=== PATIENT | female | born 1975 | race Caucasian/White ===

== ENCOUNTER 2018-11-29 23:09 | Emergency (ER) | payer BC ==
[2018-11-30] MEDS ORDERED: ALBUTEROL 2.5 MG/3 ML NEB SOL ONE (00:06)
--- NOTE | 2018-11-30 00:58 | ER ---
Nurse's Notes [facility] Name: Brenda Piña Age: 43 yrs Sex: Female : 1975 Arrival Date: 11/29/2018 Time: 23:11 Bed 16 Private MD: Diagnosis: Dyspnea, unspecified;Anxiety disorder, unspecified Presentation: 11/29 23:18 Presenting complaint: Patient states: "I am having breathing difficulty for a couple of jd3 weeks. it comes and goes. I have seen my primary provider and given an inhaler, but it is not helping all that well.". Transition of care: patient was not received from another setting of care. Onset of symptoms was November 29, 2018. Risk Assessment: Do you want to hurt yourself or someone else? Patient reports no desire to harm self or others. Initial Sepsis Screen: Does the patient meet any 2 criteria? No. Patient's initial sepsis screen is negative. Does the patient have a suspected source of infection? No. Patient's initial sepsis screen is negative. Care prior to arrival: None. 23:18 Method Of Arrival: Ambulatory jd3 23:18 Acuity: PATRICIA 3 jd3 Triage Assessment: 23:29 General: Appears in no apparent distress. Behavior is calm, cooperative. Respiratory: ak1 Reports shortness of breath since 2 weeks [employer] the patient has mild shortness of breath. Respiratory: Airway is patent Respiratory effort is even, unlabored, Breath sounds are clear bilaterally. Historical: - Allergies: 23:22 Sulfa (Sulfonamide Antibiotics); jd3 - Home Meds: 23:22 moxifloxacin ophthalmic ophthalmic [Active]; jd3 - PMHx: 23:22 Asthma; jd3 - PSHx: 23:22 None; jd3 - Immunization history:: Adult Immunizations up to date. - Social history:: Smoking status: Patient/guardian denies using tobacco. - Ebola Screening: : Patient negative for fever greater than or equal to 101.5 degrees Fahrenheit, and additional compatible Ebola Virus Disease symptoms. Screenin:26 Abuse screen: Denies threats or abuse. Denies injuries from another. Nutritional ak1 screening: No deficits noted. Tuberculosis screening: No symptoms or risk factors identified. Fall Risk None identified. Assessment: 23:26 General: Appears in no apparent distress. Behavior is calm, cooperative. Pain: Denies ak1 pain. Neuro: No deficits noted. Cardiovascular: Reports None Rhythm is regular. Respiratory: Airway is patent Respiratory effort is even, unlabored, Breath sounds are clear bilaterally. Onset: The symptoms/episode began/occurred 2 weeks [employer]. pt using recuse inhaler that helps with chest tightness. pt denies any known trigger for the intermittent SOB. pt stated she has 5 children, 3 of which are "small" pt stated a possibility of anxiety and increased stress. . GI: No signs and/or symptoms were reported involving the gastrointestinal system. : No signs and/or symptoms were reported regarding the genitourinary system. EENT: No signs and/or symptoms were reported regarding the EENT system. Derm: No signs and/or symptoms reported regarding the dermatologic system. Musculoskeletal: No signs and/or symptoms reported regarding the musculoskeletal system. Vital Signs: 23:22 BP 115 / 56; Pulse 73; Resp 18 S; Temp 97.8(O); Pulse Ox 100% on R/A; Weight 67.13 kg j (R); Height 5 ft. 4 in. (162.56 cm) (R); Pain 0/10; 11/30 00:42 BP 111 / 53; Pulse 91; Resp 16; Pulse Ox 100% on R/A; ak1 11/29 23:22 Body Mass Index 25.40 (67.13 kg, 162.56 cm) jd3 ED Course: 11/29 23:11 Patient arrived in ED. ag3 23:21 Triage completed. jd3 23:22 Teresa Enamorado, RN is Primary Nurse. ak1 23:23 Arm band placed on. jd3 23:30 Patient has correct armband on for positive identification. Bed in low position. Call ak1 light in reach. Side rails up X 1. Adult w/ patient. Pulse ox on. NIBP on. 23:34 Jorge Malik MD is Attending Physician. tw4 11/30 00:19 Chest Single View XRAY In Process Unspecified. EDMS 01:01 No provider procedures requiring assistance completed. Patient did not have IV access ak1 during this emergency room visit. Administered Medications: 11/29 23:52 Drug: Albuterol 1.25 mg Route: Inhalation; ak1 Outcome: 11/30 00:57 Discharge ordered by . tw4 01:01 Discharged to home ambulatory, with family. ak1 01:01 Condition: good 01:01 Discharge instructions given to patient, family, Instructed on discharge instructions, follow up and referral plans. Demonstrated understanding of instructions, follow-up care. 01:02 Patient left the ED. ak1 Signatures: Dispatcher [employer] EDMS Teresa Enamorado RN RN ak1 Hieu Dias RN RN jd3 Jorge Malik MD MD tw4 [place] 3
--- NOTE | 2018-11-30 08:31 | RAD REPORT ---
EXAM DESCRIPTION: Maryann Single View11/30/2018 12:15 am CLINICAL HISTORY: sob COMPARISON: none FINDINGS: The lungs appear clear of acute infiltrate. The heart is normal size IMPRESSION: No acute abnormalities displayed
--- NOTE | 2018-12-01 01:05 | EDPHYS ---
Physician Documentation [facility] Name: Brenda Piña Age: 43 yrs Sex: Female : 1975 Arrival Date: 11/29/2018 Time: 23:11 Bed 16 Private MD: ED Physician Jorge Malik HPI: 11/30 06:18 This 43 yrs old Female presents to ER via Ambulatory with complaints of tw4 Breathing Difficulty. 06:18 The patient has shortness of breath at rest. Onset: The symptoms/episode began/occurred tw4 2 day(s) ago. Duration: The symptoms are intermittent, with no pattern. The patient's shortness of breath has no apparent modifying factors. Associated signs and symptoms: The patient has no apparent associated signs or symptoms. Severity of symptoms: At their worst the symptoms were very mild in the emergency department the symptoms are unchanged. The patient has not experienced similar symptoms in the past. Historical: - Allergies: 11/29 23:22 Sulfa (Sulfonamide Antibiotics); jd3 - Home Meds: 23:22 moxifloxacin ophthalmic ophthalmic [Active]; jd3 - PMHx: 23:22 Asthma; jd3 - PSHx: 23:22 None; jd3 - Immunization history:: Adult Immunizations up to date. - Social history:: Smoking status: Patient/guardian denies using tobacco. - Ebola Screening: : Patient negative for fever greater than or equal to 101.5 degrees Fahrenheit, and additional compatible Ebola Virus Disease symptoms. ROS: 11/30 06:18 Constitutional: Negative for fever, chills, and weight loss, Eyes: Negative for injury, tw4 pain, redness, and discharge, Cardiovascular: Negative for chest pain, palpitations, and edema. Abdomen/GI: Negative for abdominal pain, nausea, vomiting, diarrhea, and constipation, Back: Negative for injury and pain, MS/Extremity: Negative for injury and deformity, Skin: Negative for injury, rash, and discoloration. Respiratory: Positive for shortness of breath, Negative for cough, dyspnea on exertion, hemoptysis, orthopnea, shortness of breath. Exam: 06:18 Constitutional: This is a well developed, well nourished patient who is awake, alert, tw4 and in no acute distress. Head/Face: Normocephalic, atraumatic. Chest/axilla: Normal chest wall appearance and motion. Nontender with no deformity. No lesions are appreciated. Cardiovascular: Regular rate and rhythm with a normal S1 and S2. No gallops, murmurs, or rubs. Normal PMI, no JVD. No pulse deficits. Respiratory: Lungs have equal breath sounds bilaterally, clear to auscultation and percussion. No rales, rhonchi or wheezes noted. No increased work of breathing, no retractions or nasal flaring. Abdomen/GI: Soft, non-tender, with normal bowel sounds. No distension or tympany. No guarding or rebound. No evidence of tenderness throughout. Back: No spinal tenderness. No costovertebral tenderness. Full range of motion. MS/ Extremity: Pulses equal, no cyanosis. Neurovascular intact. Full, normal range of motion. Neuro: Awake and alert, GCS 15, oriented to person, place, time, and situation. Cranial nerves II-XII grossly intact. Motor strength 5/5 in all extremities. Sensory grossly intact. Cerebellar exam normal. Normal gait. Vital Signs: 11/29 23:22 BP 115 / 56; Pulse 73; Resp 18 S; Temp 97.8(O); Pulse Ox 100% on R/A; Weight 67.13 kg jd3 (R); Height 5 ft. 4 in. (162.56 cm) (R); Pain 0/10; 11/30 00:42 BP 111 / 53; Pulse 91; Resp 16; Pulse Ox 100% on R/A; ak1 11/29 23:22 Body Mass Index 25.40 (67.13 kg, 162.56 cm) jd3 MDM: 11/29 23:34 Patient medically screened. tw4 11/30 06:18 Differential diagnosis: reactive airway disease. Data reviewed: vital signs, nurses tw4 notes. Counseling: I had a detailed discussion with the patient and/or guardian regarding: the historical points, exam findings, and any diagnostic results supporting the discharge/admit diagnosis, radiology results. Medication response: Response to treatment: the patient's symptoms have mildly improved after treatment, and as a result, I will discharge patient. Special discussion: I discussed with the patient/guardian in detail that at this point there is no indication for admission to the hospital. It is understood, however, that if the symptoms persist or worsen the patient needs to return immediately for re-evaluation. 11/29 23:52 Order name: Chest Single View XRAY ak1 Administered Medications: 11/29 23:52 Drug: Albuterol 1.25 mg Route: Inhalation; ak1 Disposition: 11/30/18 00:57 Discharged to Home. Impression: Dyspnea, unspecified, Anxiety disorder, unspecified. - Condition is Stable. - Discharge Instructions: Shortness of Breath, [id number], Generalized Anxiety Disorder. - Medication Reconciliation Form, Thank You Letter, Antibiotic Education, Prescription Opioid Use form. - Follow up: Private Physician; When: Upon discharge from the Emergency Department; Reason: If symptoms return, Recheck today's complaints, Continuance of care. - Problem is new. - Symptoms have improved. Signatures: Dispatcher [employer] EDMS Teresa Enamorado RN RN ak1 Hieu Dias RN RN jd3 Jorge Malik MD MD tw4 Corrections: (The following items were deleted from the chart) 11/30 01:02 00:57 11/30/2018 00:57 Discharged to Home. Impression: Dyspnea, unspecified; Anxiety ak1 disorder, unspecified. Condition is Stable. Forms are Medication Reconciliation Form, Thank You Letter, Antibiotic Education, Prescription Opioid Use. Follow up: Private Physician; When: Upon discharge from the Emergency Department; Reason: If symptoms return, Recheck today's complaints, Continuance of care. Problem is new. Symptoms have improved. tw4
== END 2018-11-30 01:02 | disposition home or self-care (01) ==
LOC: ER 23:09
DX: R06.00 Dyspnea, unspecified (principal); F41.9 Anxiety disorder, unspecified; Z88.2 Allergy status to sulfonamides
CPT/HCPCS: 71045; 99284

== ENCOUNTER 2023-05-07 22:04 | Observation (INO) | payer OTHER ==
--- OUTSIDE RECORDS SUMMARY | 2023-05-07 22:08 | XMS REPORT | Continuity of Care Document ---
:1975 Author Organization [facility] t Address [address]. [address] [place] [address] Care Team Providers Name Role Phone MICKEY SAENZ Primary Care Physician Unavailable MICKEY SAENZ Attending Clinician Unavailable [email or web address]_Kadistevea_S Attending Clinician Unavailable Mickey Saenz MD Attending Clinician [phone] [email or web address]_Kadiyala_S Admitting Clinician Unavailable MICKEY FORD Admitting Clinician Unavailable Payers Payer Name Policy Type Policy Number Effective Date Expiration Date S ourdante [employer] [id number] 2022 00:00:00 BCBS PPO POS EPO [id number] 2021 CHOICE 00:00:00 Problems Condition Condition Condition Status Onset Resolution Last Treating Co mments Source Name Details Category Date Date Treatment Clinician Date Abnormal Abnormal Disease [facility] bleeding bleeding 00:00: Medica l (AUB) (AUB) 00 [place] Irregular Irregular Disease Active [facility] periods/me periods/me 9-11 Candida kes nstrual nstrual 00:00: Medical cycles cycles 00 Center Dysmenorrh Dysmenorrh Disease Active [facility] 00:00: Medical 00 [place] Pelvic Pelvic Disease Active [facility] pain pain 9[facility] 00:[facility]: Medical 00 [facility] Allergies, Adverse Reactions, Alerts Allergy Allergy Status Severity Reaction(s) Onset Inactive Treating Comm ents Source Name Type Date Date Clinician SULFA Allergy Active [facility] (SULFONA 9-06 [facility] MIDE 00:00: Medical ANTIBIOT 00 Center ICS) Sulfa Propensi Active [facility] (Sulfona ty to 9-06 [facility] mide adverse 00:00: Medical Antibiot reaction 00 Center ics) s Family History Family Member Diagnosis Comments Start Date Stop Date Source Maternal grandmother Ovarian cancer [facility] Social History Social Habit Start Date Stop Date Quantity Comments Source Sexual orientation 2022-03-[address] [facility] 21:00:44 (finding) [facility] History of Social 2022-08-08 2022-08-[address] [facility] function 00:00:00 00:00:00 [facility] Alcohol intake 2022-08-08 2022-08-08 [facility] 00:00[facility]00 00:00:00 alcohol (finding) [facility] Tobacco use and 2019-02-28 2019-02-28 Smokeless tobacco [facility] exposure 00:00:00 00:00:00 non-user [facility] Sex Assigned At [birth year] F [facility] 00:00:00 00:00:00 [facility] Smoking Status Start Date Stop Date Source Never smoked tobacco [facility] Medications Ordered Filled Start Stop Current Ordering Indication Dosage Frequency Signature Comments Components Source Medication Medication Date Date Medication? Clinician (SIG) Name Name ascorbic Yes Take by [facility] St acid 2-14 mouth. [facility] (VITAMIN C 08:59: Medical ORAL) Center Vital Signs Vital Name Observation Time Observation Value Comments Source HEIGHT 2022-08-08 08:58:00 162.6 cm WEIGHT 2022-08-08 08:58:00 70.126 kg HEIGHT 2022-08-08 08:58:00 162.6 cm WEIGHT 2022-08-08 08:58:00 70.126 kg HEIGHT 2021-06-06 15:57:00 162.6 cm WEIGHT 2021-06-06 15:57:00 67.132 kg HEIGHT 2020-04-22 10:20:00 162.6 cm WEIGHT 2020-04-22 10:20:00 62.143 kg Systolic blood 2022-08-08 08:58:00 121 mm[Hg] [facility] Diastolic blood 2022-08-08 08:58:00 56 mm[Hg] [facility] Heart rate 2022-08-08 08:58:00 75 /min [facility] Body temperature 2022-08-08 08:58:00 36.67 Juliette [facility] Body height 2022-08-08 08:58:00 162.6 cm [facility] Body weight 2022-08-08 08:58:00 70.126 kg [facility] BMI 2022-08-08 08:58:00 26.54 kg/m2 [facility] Procedures Procedure Date / Time Performed Performing Clinician Sourasa e COLOGUARD COLON 2022-09-13 00:00:00 Provider, Historical [facility] SCREENING TEST [facility] CBC W/PLT COUNT & AUTO 2022-08-08 09:32:00 Mickey Saenz [facility] LIPID PANEL 2022-08-08 09:32:00 Saenz Mickey [facility] HEMOGLOBIN A1C 2022-08-08 09:32:00 Saenz Mickey [facility] TSH 2022-08-08 09:32:00 Dany Mickey [facility] T4, FREE 2022-08-08 09:32:00 Saenz Mickey [facility] HEPATITIS C ANTIBODY 2022-08-08 09:32:00 Mickey Saenz [facility] CERVICAL CANCER B 2022-08-08 09:19:00 Mickey Saenz [facility] SCREENING ONLY- NO STD'S [facility] Center IGP, APTIMA HPV, RFX 2022-08-08 09:19:00 Mickey Saenz [facility] 16/18,45 [facility] Center Plan of Care Planned Activity Planned Date Details Comments Source Future Scheduled 2027-08-08 Screening for malignant [facility] Test 00:00:00 neoplasm of cervix Medical C enter (procedure) [code = 803490022] Future Scheduled 2027-08-08 Lipid panel (procedure) [facility] Test 00:00:00 [code = 04578065] Medical Ce nter Future Scheduled 2025-09-13 Screening for malignant [facility] Test 00:00:00 neoplasm of colon Medical Ce nter (procedure) [code = 977778528] Future Scheduled 2025-09-13 Screening for malignant [facility] Test 00:00:00 neoplasm of colon Medical Ce nter (procedure) [code = 920212486] Future Scheduled 2023-08-[address] [facility] Test 00:00:00 Counseling and Screening Med ical Center (12+) [code = Tobacco Cessation Counseling and Screening (12+)] Future Scheduled 2023-02-23 Influenza Vaccine (#1) [facility] Test 00:00:00 [code = Influenza Vaccine Ia dical Center (#1)] Future Scheduled 1995-11-08 DTAP/TDAP/TD VACCINES ([address] [facility] Test 00:00:00 - Tdap) [code = Medical Cent er DTAP/TDAP/TD VACCINES (1 - Tdap)] Future Scheduled 1991-11-[address] [facility] Test 00:00:00 virus screening Medical Cent er (procedure) [code = 227886122] Future Scheduled 1977[birth year]05[birth year]10 COVID-19 VACCINE (#1) [facility] Test 00:00:00 [code = COVID-19 VACCINE Med ical Center (#1)] Future Scheduled 1976 CT Colonography (combo) [facility] Test 00:00:00 [code = CT Colonography [facility] Center (combo)] Future Scheduled 1975 Screening for malignant [facility] Test 00:00:00 neoplasm of colon Medical Ce nter (procedure) [code = 014342414] Future Scheduled 1975 Screening for malignant [facility] Test 00:00:00 neoplasm of colon Medical Ce nter (procedure) [code = 539552136] Future Scheduled 1975 Sigmoidoscopy [code = [facility] Test 00:00:00 Sigmoidoscopy] Medical Cente r Encounters Start End Encounter Admission Attending Care Care Encounter Source Date/Time Date/Time Type Type Clinicians Facility Department ID 2023-08-09 2023-08-09 Outpatient SAENZ, [facility] [id number] 00:00:00 00:00:00 [facility] 2023-04-22 2023-04-22 Outpatient GC_GCBZW_Ka PRIV PRIV [id number] [facility] 00:00:00 00:00:00 diyala_S [id number] Medic al 2022-08-08 2022-08-08 Outpatient JORGE LUIS SAENZ, [facility] [id number] 08:45:18 09:22:40 [facility] 2022-08-08 2022-08-[address] [facility] [id number] 08:45:00 09:22:40 Visit [facility] 2022-07-11 2022-07-11 Outpatient JORGE LUIS SAENZ [facility] [id number] 00:00:00 00:00:00 [facility] 2022-06-07 2022-06-07 Outpatient DANY [facility] [id number] 00:00:00 00:00:00 [facility] 2022-03-16 2022-03-16 Outpatient JORGE LU[facility]ENZ[facility] [id number] [facility] 08:24:16 23:59:00 [facility] 2021-06-06 2021-06-06 Outpatient DANY [facility] [id number] 15:48:08 16:31:10 [facility] 2021-04-28 2021-04-28 Outpatient DANY, [facility] [id number] 00:00:00 00:00:00 [facility] 2021-02-17 2021-02-17 Outpatient EL [facility] [id number] [facility] 00:00:00 00:00:00 2020-04-22 2020-04-22 Outpatient ALESSANDROCONRADBAILEY [facility] [id number] 00:00:00 00:00:00 [facility] 2020-03-04 2020-03-04 Outpatient ALESSANDROSALAZAR [facility] [id number] 00:00:00 00:00:00 [facility] 2019-12-01 2019-12-01 Outpatient EL [facility] [id number] [facility] 00:00:00 00:00:00 Results Test Description Test Time Test Comments Results Result Comments Source Cologuard Colon Screening Test 2022-09-13 00:00:00 Test Item Value Reference Range Interpretation Comme nts Cologuard Screening (test code = 5483) Negative [facility] S[facility]EN[facility] ONLY- NO [id number] 10:09:00 Test Item Value Reference Range Interpretation Comments Age Gdln ACOG 30-65 Testing (test code = 1015437) ESTEFANY (test code = Specimen Comment: No. of ESTEFANY) containers..01 ThinPrep VialPerformed at: 01 - [facility] [address] [id number] Director: Eric Huddleston MD, Phone: [phone] [facility]-G TV RFXHPV [id number] 10:09:00 Test Item Value Reference Interpretation Comments Range DIAGNOSIS: (test Comment NEGATIVE FO R code = ) INTRAEPITHEL IAL LESION OR MALIGNANCY.SPEC IMEN REPROCESSED FOR INTERPRETATION. Specimen adequacy: Comment Satisfact ory for (test code = evaluation. No ) endocervical component is identified.AREA S OF PARTIALLY OBSCU RING INFLAMMATORY EX UDATE ARE PRESENT. Performed by: (test Comment Payal Tirado cia, code = 1727991) Cytotechnolo gist (ASCP) Electronically Comment Edilberto Cottrell MD, signed by: (test Pathologist code = 9467648) . (test code = . 6568464) Note: (test code = Comment The Pap s mear is a 0272262) screening test designed to aid in the detection ofpremalignant and malignant condi tions of the uterine cervix. It is n ot adiagnostic pro cedure and should not be used as the jacob e means of detectingcervic al cancer. Both false-positive and false-negative reports do occu r. Test Methodology: CANCELED The Thin P rep(R) (test code = Car Repairer Pullman was unab le to ) read this speci men. Thereforea manu al review was perf ormed. Result canceled by the ancillary. HPV APTIMA (test Negative Negative This nuclei c acid code = 5997361) amplificatio n test detects fourtee n high-riskHPV ty pes (16,18,31,33,35 ,39,45 ,51,52,56,58,59 ,66,68 ) withoutdifferen tiatio n. HPV Genotype Reflex Comment Criteria not met, HPV (test code = Genotype not 289550248643) performed. ESTEFANY (test code = Specimen ESTEFANY) Comment: No. of containers..01 ThinPrep VialPerformed at: - [address] [id number] Director: Eric Huddleston MD, Phone: [phone] ed at: [address] [id number] Director: Eric Huddleston MD, Phone: [phone] [facility] CenterLipid [id number] 09:12:00 Test Item Value Reference Range Interpretation Comments Cholesterol, Total (test 158 mg/dL 100-199 code = 2093-3) Triglycerides (test code 55 mg/dL 0-149 = 2571-8) HDL Cholesterol (test 49 mg/dL >=39 code = 2085-9) VLDL Cholesterol Reece 11 mg/dL 5-40 (test code = 78791-0) LDL Calculated (test 98 mg/dL 0-99 code = 72520-0) ESTEFANY (test code = ESTEFANY) Performed at: [address] [id number] Director: Eric Huddleston MD, Phone: [phone] [facility] CenterHemoglobin [id number] 09:12:00 Test Item Value Reference Range Interpretation Comments Hemoglobin A1c 5.1 % 4.8-5.6 Prediabetes: (test code = 5.7 - 6.4 4548-4) Diabetes: >6.4 Glycemic contro l for adults with diabetes: <7.0 ESTEFANY (test code = Performed at: ESTEFANY) [facility] [id number] Director: Eric Huddleston MD, Phone: [phone] [facility] CenterT4, [id number] 09:12:00 Test Item Value Reference Range Interpretation Comments T4,Free(Direct) (test 1.25 ng/dL 0.82-1.77 code = 20120129) Thyroxine (T4) (test 7.2 ug/dL 4.5-12.0 code = 20101106) ESTEFANY (test code = ESTEFANY) Performed at: - [facility] [id number] Director: Eric Huddleston MD, Phone: [phone] [facility] CenterTSH2023-02-15 09:12:00 Test Item Value Reference Range Interpretation Comments TSH (test code 0.524 See_Comment [Automated m essage] = ) The system whic h generated this result transmit lauren reference range : 0.450 - 4.50 uI U/mL. The reference r thomas was not used to interpret this result as normal/abnormal . ESTEFANY (test code Performed at: - = ESTEFANY) [facility] [id number] Director: Eric Huddleston MD, Phone: [phone] [facility] CenterCBC with platelet count + automated [id number] 09:12:00 Test Item Value Reference Range Interpretation Comments WBC (test code = 8.2 See_Comment [Automated ) message] The system which generated this result transmit lauren reference range : 3.4 - 10.8 x10E3/uL. The reference range was not used to interpret this result as normal/abnormal . RBC (test code = 4.29 See_Comment [Automated 789-8) message] The system which generated this result transmit lauren reference range : 3.77 - 5.28 x10E6/uL. The reference range was not used to interpret this result as normal/abnormal . Hemoglobin (test 13.4 g/dL 11.1-15.9 code = ) Hematocrit (test 39.4 % 34.0-46.6 code = ) MCV (test code = 92 fL 79-97 ) MCH (test code = 31.2 pg 26.6-33.0 ) MCHC (test code = 34.0 g/dL 31.5-35.7 ) RDW (test code = 12.4 % 11.7-15.4 ) Platelets (test 154 See_Comment [Automated code = ) message] The system which generated this result transmit lauren reference range : 150 - 450 x10E3/uL. The reference range was not used to interpret this result as normal/abnormal . % Neutros (test 76 % Not Estab. code = ) % Lymphs (test 17 % Not Estab. code = ) % Monos (test code 6 % Not Estab. = ) % Eos (test code = 0 % Not Estab. ) % Baso (test code 1 % Not Estab. = ) # Neutros (test 6.2 See_Comment [Automated code = ) message] The system which generated this result transmit lauren reference range : 1.4 - 7.0 x10E3/uL. The reference range was not used to interpret this result as normal/abnormal . # Lymphs (test 1.4 See_Comment [Automated code = ) message] The system which generated this result transmit lauren reference range : 0.7 - 3.1 x10E3/uL. The reference range was not used to interpret this result as normal/abnormal . # Monos (test code 0.5 See_Comment [Automat ed = ) message] The system which generated this result transmit lauren reference range : 0.1 - 0.9 x10E3/uL. The reference range was not used to interpret this result as normal/abnormal . # Eos (test code = 0.0 See_Comment [Automat ed ) message] The system which generated this result transmit lauren reference range : 0.0 - 0.4 x10E3/uL. The reference range was not used to interpret this result as normal/abnormal . Baso (Absolute) 0.0 See_Comment [Automated (test code = message] The ) system which generated this result transmit lauren reference range : 0.0 - 0.2 x10E3/uL. The reference range was not used to interpret this result as normal/abnormal . % Immature Grans 0 % Not Estab. (test code = ) # Immature Grans 0.0 See_Comment [Automated (test code = message] The ) system which generated this result transmit lauren reference range : 0.0 - 0.1 x10E3/uL. The reference range was not used to interpret this result as normal/abnormal . ESTEFANY (test code = Performed at: 01 - ESTEFANY) [facility] [id number] Director: Eric Huddleston MD, Phone: [phone] [facility] CenterHepatitis C [id number] 09:12:00 Test Item Value Reference Range Interpretation Comments Hep C Virus Non Reactive Non Reacti HCV antibody al one does Ab (test not differentia te between code = previouslyresol judy 20120311) infection and a ctive infection. Equi vocal and ReactiveHCV ant ibody results should be followed up wit h an HCV RNA testto supp ort the diagnosis of ac tive HCV infection. ESTEFANY (test Performed at: 01 code = ESTEFANY) - [facility] [address] [id number] Director: Eric Huddleston MD, Phone: [phone] [facility] CenterMM, DIGITAL, MAMMO, SCREENING, WITH YAIMA, BILATERAL INCLUDING [id number] 14:02:00Diagnostic workup per radiologist?->YesReason for Exam:->[facility] : 1975 Sex: FN#: [id number] - MM, DIGITAL, MAMMO, SCREENING, WITH YAIMA, BILATERAL INCLUDING CAD BILATERAL DIGITAL SCREENING MAMMOGRAM 3D/2D WITH CAD: 03/16/2022 Comparison is made to exams dated: 02/17/2021 mammogram and 12/01/2019 mammogram - [facility]. The tissue of both breasts is heterogeneously dense. This may lower the sensitivity of mammography. Tomosynthesis 3D imaging of the breast was also performed. Current study was also evaluated with a Computer Aided Detection (CAD)system. There are benign calcifications in the right breast. No significant masses, calcifications, or other findings are seen in either breast. There has been no significant interval change. IMPRESSION: BENIGNThere is no mammographic evidence of malignancy. A 1 year screening mammogram is recommended. Yovany collado/penrad:03/28/2022 14:02:17 Normal BiRad 1-2 Mammogram BI-RADS: 2 Benign Elect ronically signed by: YOVANY CASTELLON MD on 03/28/2022 02:02 PMMM, DIGITAL, MAMMO, SCREENING, WITH YAIMA, BILATERAL INCLUDING [id number] 10:29:00 Diagnostic workup per radiologist?->Yes Reason for Exam:->z12.31 [facility] : 1975 Sex: FMRN#: [id number] - MM, DIGITAL, MAMMO, SCREENING, WITH YAIMA, BILATERAL INCLUDING CAD BILATERAL DIGITAL SCREENING MAMMOGRAM 3D/2D WITH CAD: 02/17/2021 Comparison is made to exams dated: 12/01/2019 mammogram - [facility] and 10/17/2018 mammogram - [facility]. Current study contains 4 films. The tissue of both breasts is heterogeneously dense. This may lower the sensitivity of mammography. Tomosynthesis 3D imaging of the breast was also performed. Current study was also evaluated with a Computer Aided Detection (CAD) system. There are scattered benign calcifications in the right breast. No significant masses, calcifications, or other findings are seen in either breast. IMPRESSION: There is no mammographic evidence of malignancy. A 1 year screening mammogram is recommended. Inocencio Chavez M.D. cct/penrad:02/18/2021 10:29:54 Normal BiRad 1-2 Mammogram BI-RADS: 2 Benign MM, DIGITAL, MAMMO, SCREENING, WITH YAIMA, BILATERAL INCLUDING [id number] 15:54:00Diagnostic workup per radiologist?- >YesReason for Exam:->Z12.31; Mammogram ScreeningMRN#: [id number] - MM, DIGITAL, MAMMO, SCREENING, WITH YAIMA, BILATERAL INCLUDING CAD BILATERAL DIGITAL SCREENING MAMMOGRAM 3D/2D WITH CAD: 12/01/2019 Comparison is made to exam dated: 10/17/2018 mammogram - [facility]. The tissue of both breasts is heterogeneously dense. This may lower the sensitivity of mammography. Tomosynthesis 3D imaging of the breast was also performed. Current study was also evaluated with a Computer Aided Detection (CAD) system. Benign appearing calcifications are present in the right breast. No significant masses, calcifications, or other findings are seen in either breast. IMPRESSION: There is no mammographic evidence of malignancy. A 1 year screening mammogram is recommended. Laith Frye M.D. pth/penrad:12/01/2019 15:54:49 Normal BiRad 1-2 Mammogram BI-RADS: 2 Benign FUNGUS CULTURE + [id number] 18:42:00 Test Item Value Reference Range Interpretation Comments CULTURE (BEAKER) (test No fungus isolated in code = 1095) 28 days FUNGUS SMEAR (BEAKER) No fungi seen (test code = 1406) MISCELLANEOUS LAB [id number] 10:57:00 Test Item Value Reference Range Interpretation Comments SCAN RESULT (test code See scanned attachment. = [id number]) MISCELLANEOUS LAB [id number] 06:46:00 Test Item Value Reference Range Interpretation Comments SCAN RESULT (test code = 0985858) ANAEROBIC [id number] 10:43:00 Test Item Value Reference Range Interpretation Comments CULTURE (BEAKER) A 3+ Bifidoba cterium species (test code = 1095) TISSUE [id number] 13:35:00Surgical Pathology Report Case: [id number] Authorizing Provider: Mickey Ford MD Collected: 03/14/2019 1151 Ordering Location: [facility] Received: 03/14/2019 1235 SERVICES Pathologist: Piper Parra MD Specimen: Uterus w/Cervix & Bilateral Fallopian Tubes, Uterus,Cervix & Bilateral Tubes UTERUS WITH CERVIX AND BILATERAL FALLOPIAN TUBES, HYSTERECTOMY AND BILATERAL SALPINGECTOMY: ENDOMETRIUM: SECRETORY ENDOMETRIUM MYOMETRIUM: NO SIGNIFICANT PATHOLOGIC ALTERATION CERVIX: NO SIGNIFICANT PATHOLOGIC ALTERATION BILATERAL FALLOPIAN TUBES: PARATUBAL CYSTS Signing Pathologist Direct Phone Line: [phone] signed by Piper Parra MD on 03/17/2019 at 1:35 PMMG/[id number], abnormal uterine bleeding, pelvic painUterus with cervix and bilateral fallopian tubesThe specimen is received in fixative and designated as "uterus with bilateral fallopian tubes", is a hysterectomy specimen (122 gm, 9.0 cm superior to inferior, 7.0 cm cornu to cornu and 4.5 cm anterior to posterior) with detached and unoriented fallopian tubes with fimbriated ends measuring 6.5 cm in length and 1.0 cm in diameter and 6.0 cm in length and 0.7 cm in diameter respectively. One of the fallopian tubes has paratubal cysts ranging in size from 0.5 to 0.8 cm in greatest dimension. The ectocervix is pink-bowser and focally hemorrhagic towards the os; however, no discr ete lesions are identified. The endometrium is pink-bowser and slightly thickened and polypoid at 0.4 to 0.5 cm in greatest thickness. The myometrium is pink-bowser, trabeculated and is 2.0 cm in greatest thickness. No obvious intramural nodules are identified. Section code: A1, anterior cervix; A2, posterior cervix; A3-A4, anterior endomyometrium; A5, posterior endomyometrium; A6, fimbriated end of one fallopian tube entirely submitted along with paratubal cyst and liability claims representative cross sections; A7, fimbriated end of opposite fallopian tube entirely submitted with liability claims representative cross sections. MG/ewPerformedSt. [facility], [facility] of Pathology, [address] [place] [address], Rmtrcs [facility], Department of Pathology, [address] [place] [address], Cd[address] [facility], Department of Pathology, [address] [place] [address], [id number] OBTAINED CULTURE + GRAM STAIN 2019-03-17 12:02:00 Test Item Value Reference Range Interpretation Comments CULTURE (BEAKER) A 2+ Viridans (test code = Streptococcus 1095) GRAM STAIN <1+ WBCs RESULT (BEAKER) (test code = 1123) GRAM STAIN <1+ gram variable RESULT (BEAKER) rods (test code = 93081) SCREEN, [id number] 08:54:00 Test Item Value Reference Range Interpretation Comments TEST URINE (BEAKER) (test Negative code = 583) HCG, SERUM, [id number] 12:03:00 Test Item Value Reference Range Interpretation Comments TEST SERUM (BEAKER) (test Negative code = 584) CBC W/PLT COUNT & AUTO [id number] 11:57:00 Test Item Value Reference Range Interpretation Comments WHITE BLOOD CELL COUNT (BEAKER) 6.8 K/ L 4.0-10.0 (test code = 775) RED BLOOD CELL COUNT (BEAKER) 4.39 M/ L 4.00-5.00 (test code = 761) HEMOGLOBIN (BEAKER) (test code = 13.7 GM/DL 12.0-15.5 410) HEMATOCRIT (BEAKER) (test code = 40.1 % 36.0-46.0 411) MEAN CORPUSCULAR VOLUME (BEAKER) 91.3 fL 82.0-99.0 (test code = 753) MEAN CORPUSCULAR HEMOGLOBIN 31.2 pg 27.0-33.0 (BEAKER) (test code = 751) MEAN CORPUSCULAR HEMOGLOBIN CONC 34.2 GM/DL 32.0-36.0 (BEAKER) (test code = 752) RED CELL DISTRIBUTION WIDTH 13.2 % 12.0-15.0 (BEAKER) (test code = 412) PLATELET COUNT (BEAKER) (test 176 K/CU MM 150-430 code = 756) MEAN PLATELET VOLUME (BEAKER) 12.5 fL 6.0-11.5 H (test code = 754) NUCLEATED RED BLOOD CELLS 0 /100 WBC 0-0 (BEAKER) (test code = 413) NEUTROPHILS RELATIVE PERCENT 66 % (BEAKER) (test code = 429) LYMPHOCYTES RELATIVE PERCENT 25 % (BEAKER) (test code = 430) MONOCYTES RELATIVE PERCENT 8 % (BEAKER) (test code = 431) EOSINOPHILS RELATIVE PERCENT 1 % (BEAKER) (test code = 432) BASOPHILS RELATIVE PERCENT 1 % (BEAKER) (test code = 437) NEUTROPHILS ABSOLUTE COUNT 4.44 K/ L 1.80-8.00 (BEAKER) (test code = 670) LYMPHOCYTES ABSOLUTE COUNT 1.68 K/ L 1.48-4.50 (BEAKER) (test code = 414) MONOCYTES ABSOLUTE COUNT (BEAKER) 0.53 K/ L 0.00-1.30 (test code = 415) EOSINOPHILS ABSOLUTE COUNT 0.07 K/ L 0.00-0.50 (BEAKER) (test code = 416) BASOPHILS ABSOLUTE COUNT (BEAKER) 0.04 K/ L 0.00-0.20 (test code = 417) IMMATURE GRANULOCYTES-RELATIVE 0 % 0-0 PERCENT (BEAKER) (test code = 8664)
[2023-05-07 23:11] LABS: Absolute Lymphocytes (CBC) 2.4 K/uL (0.7-4.9); Hematocrit 41.7 % (36.0-45.0); Lymphocytes % 27.7 % (15.3-44.8); MCV 92.3 fL (80-100); MPV 10.9 fL (7.6-11.3); Platelets 193 thou/uL (152-406); RBC Red Blood Cell Count 4.52 M/uL (3.86-4.86)
[2023-05-07 23:24] LABS: Magnesium 2.4 mg/dL (1.6-2.4); Potassium 3.7 mEq/L (3.5-5.1); Troponin High Sensitivity 12.3 pg/mL (<58.9)
[2023-05-08 00:23] LABS: Specific Gravity 1.011 (1.005-1.030)
[2023-05-08 00:35] LABS: Specific Gravity 1.011 (1.005-1.030); Urine Bacteria <20 /HPF (<20); Urine Bilirubin NEGATIVE (Negative); Urine Blood Negative (Negative); Urine Clarity Clear (Clear); Urine Color Colorless (Yellow); Urine Glucose NEGATIVE (Negative); Urine Mucus Slight /HPF (None Seen); Urine Protein NEGATIVE (Negative); Urine RBC <5 /HPF (None Seen); Urine Urobilinogen Normal (Normal)
[2023-05-08] MEDS ORDERED: ASPIRIN 81 MG CHEWABLE TABLET ONE (01:26)
[2023-05-08] MEDS ORDERED: FOLIC ACID 5 MG/ML VIAL ONE (01:27)
--- NOTE | 2023-05-08 03:22 | ER ---
Nurse's Notes [facility] Name: Brenda iPña Age: 47 yrs Sex: Female : 1975 Arrival Date: 05/07/2023 Time: 22:04 Bed 6 Private MD: Diagnosis: Other visual disturbances;Weakness Presentation: 05/07 22:21 Chief complaint: Patient states: Sudden onset of blurry vision that lasted 20-30 vc1 minutes. I was reading to my kids. I feel a little weak. Coronavirus screen: Vaccine status: Patient reports being unvaccinated. Client denies travel out of the [place] in the last 14 days. At this time, the client does not indicate any symptoms associated with coronavirus-19. Ebola Screen: Patient negative for fever greater than or equal to 101.5 degrees Fahrenheit, and additional compatible Ebola Virus Disease symptoms Patient denies exposure to infectious person. Patient denies travel to an Ebola-affected area in the 21 days before illness onset. No symptoms or risks identified at this time. Risk Assessment: Do you want to hurt yourself or someone else? Patient reports no desire to harm self or others. Onset of symptoms was May 07, 2023. 22:21 Method Of Arrival: Ambulatory vc1 22:21 Acuity: PATRICIA 3 vc1 22:28 Initial Sepsis Screen: Does the patient meet any 2 criteria? No. Patient's initial vc1 sepsis screen is negative. Does the patient have a suspected source of infection? No. Patient's initial sepsis screen is negative. Triage Assessment: 22:23 General: Appears in no apparent distress. uncomfortable, Behavior is calm, cooperative, vc1 appropriate for age. Pain: Denies pain. EENT: Reports blurred vision in right eye and left eye. Neuro: Level of Consciousness is awake, alert, obeys commands, Oriented to person, place, time, situation, Appropriate for age Reports blurred vision that has now resolved. Cardiovascular: No deficits noted. Respiratory: Airway is patent Respiratory effort is even, unlabored, Respiratory pattern is regular, symmetrical. GI: No deficits noted. No signs and/or symptoms were reported involving the gastrointestinal system. : No deficits noted. No signs and/or symptoms were reported regarding the genitourinary system. Derm: No deficits noted. No signs and/or symptoms reported regarding the dermatologic system. Musculoskeletal: No deficits noted. No signs and/or symptoms reported regarding the musculoskeletal system. 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 - Social history:: Smoking status: Patient denies any tobacco usage or history of. Screenin/14 03:30 [facility] ED Fall Risk Assessment (Adult) History of falling in the last 3 months, jb4 including since admission No falls in past 3 months (0 pts) Confusion or Disorientation No (0 pts). Abuse screen: Denies threats or abuse. Nutritional screening: No deficits noted. Tuberculosis screening: No symptoms or risk factors identified. Assessment: 05/07 23:02 Reassessment: Patient appears in no apparent distress at this time. Patient and/or jb4 family updated on plan of care and expected duration. Pain level reassessed. Patient is alert, oriented x 3, equal unlabored respirations, skin warm/dry/pink. Pt reports no longer having blurry vision. Denies having a headache, chest pain, or N/V. 23:42 Reassessment: Patient appears in no apparent distress at this time. Patient and/or jb4 family updated on plan of care and expected duration. Pain level reassessed. Patient is alert, oriented x 3, equal unlabored respirations, skin warm/dry/pink. 05/08 00:37 Reassessment: Patient appears in no apparent distress at this time. Patient and/or jb4 family updated on plan of care and expected duration. Pain level reassessed. Patient is alert, oriented x 3, equal unlabored respirations, skin warm/dry/pink. 01:30 Reassessment: Patient appears in no apparent distress at this time. Patient and/or jb4 family updated on plan of care and expected duration. Pain level reassessed. Patient is alert, oriented x 3, equal unlabored respirations, skin warm/dry/pink. 02:30 Reassessment: Patient appears in no apparent distress at this time. Patient and/or jb4 family updated on plan of care and expected duration. Pain level reassessed. Patient is alert, oriented x 3, equal unlabored respirations, skin warm/dry/pink. 03:30 Reassessment: Patient appears in no apparent distress at this time. Patient and/or jb4 family updated on plan of care and expected duration. Pain level reassessed. Patient is alert, oriented x 3, equal unlabored respirations, skin warm/dry/pink. Vital Signs: 05/07 22:21 Weight 68.04 kg; Height 5 ft. 4 in. ; Pain 0/10; vc1 22:25 BP 129 / 73; Pulse 60; Resp 17; Temp 98; Pulse Ox 100% ; vc1 23:42 BP 109 / 58; Pulse 73; Resp 16; Pulse Ox 97% on R/A; jb4 05/08 00:37 BP 151 / 73; Pulse 78; Resp 20; Pulse Ox 100% on R/A; jb4 02:00 BP 100 / 53; Pulse 75; Resp 16; Pulse Ox 97% on R/A; jb4 03:15 BP 111 / 60; Pulse 65; Resp 17; Pulse Ox 97% on R/A; jb4 05/07 22:21 Body Mass Index 25.75 (68.04 kg, 162.56 cm) vc1 05/07 22:21 Pain Scale: Adult vc1 Visual Acuity: 05/07 22:33 Left Eye Visual acuity 20/25, ; Right Eye Visual acuity 20/25, ; Both Eyes Visual vc1 acuity 20/20; With Lenses; NIH Stroke Scale Scores: 22:40 NIHSS Score: 0 cp ED Course: 22:09 Patient arrived in ED. jj6 22:12 Eric Lal PA is PHCP. cp 22:12 Pricilla Ward MD is Attending Physician. cp 22:23 Triage completed. vc1 22:25 Arm band placed on right wrist. vc1 22:49 Inserted saline lock: 20 gauge in right antecubital area, using aseptic technique. bc6 Blood collected. 22:57 Chest Single View In Process Unspecified. EDMS 22:58 Ralph Prather, RN is Primary Nurse. jb4 23:57 CT Head Brain wo Cont In Process Unspecified. EDMS 23:57 CT Head Angio In Process Unspecified. EDMS 23:57 CT Neck Angio In Process Unspecified. EDMS 05/08 01:18 Priya Taylor FNP-C is Hospitalizing Provider. cp 03:30 Patient has correct armband on for positive identification. Bed in low position. Call jb4 light in reach. Side rails up X 1. Client placed on continuous cardiac and pulse oximetry monitoring. NIBP monitoring applied. athletic monitor on. 03:30 No provider procedures requiring assistance completed. Patient admitted, IV remains in jb4 place. Administered Medications: 01:16 Drug: Aspirin PO Chewable Tablet 81 mg PO once Route: PO; lg3 01:16 Drug: foLIC Acid IVPB 1 mg IVPB once Route: IVPB; Site: right antecubital; lg3 Outcome: 01:19 Decision to Hospitalize by Provider. cp 03:30 Admitted to Med/surg accompanied by nurse, via wheelchair, room 215, with chart, [facility] 03:30 Condition: stable 03:30 Discharge instructions given to patient, Instructed on the need for admit, Demonstrated understanding of instructions, 04:14 Patient left the ED. [facility] NIH Stroke Scale - NIH Stroke Score Date: 05/07/2023 Time: 22:40 Total Score = 0 10. Dysarthria (speech clarity - read or repeat words) - 0(Normal) 11. Extinction and Inattention (visual/tactile/auditory/spatial/personal) - 0(No abnormality) 1a. Level of Consciousness (LOC) - 0(Alert) 1b. Level of Consciousness (LOC) (Month \T\ Age) - 0(Both) 1c. LOC Commands (Open \T\ Closes Eyes/Veterinary Microbiologist) - 0(Both) 2. Best Gaze (Lateral Gaze Paresis) - 0(Normal) 3. Visual Field Loss - 0(No visual loss) 4. Facial Palsy - 0(Normal) 5a. Left Arm: Motor (10-second hold) - 0(No drift) 5b. Right Arm: Motor (10-second hold) - 0(No drift) 6a. Left Leg: Motor (5-second hold - always test supine) - 0(No drift) 6b. Right Leg: Motor (5-second hold - always test supine) - 0(No drift) 7. Limb Ataxia (finger/nose \T\ heel/gayle - test with eyes open) - 0(Absent) 8. Sensory Loss (pinprick arms/legs/face) - 0(Normal) 9. Best Language: Aphasia (description/naming/reading) - 0(No aphasia) Initials: cp Signatures: Dispatcher [employer] Eric Rodriguez PA PA cp Bryson, James, RN RN jb4 Indigo Cheek RN RN lg3 Odalis Gonzalez jj6 Awa Centeno RN RN vc1 Jeanna Patrick 6
--- NOTE | 2023-05-08 03:22 | EDPHYS ---
Physician Documentation [facility] Name: Brenda Piña Age: 47 yrs Sex: Female : 1975 Arrival Date: 05/07/2023 Time: 22:04 Bed 6 Private MD: ED Physician Pricilla Ward HPI: 05/07 22:33 This 47 yrs old Female presents to ER via Ambulatory with complaints of General cp Weakness, Blurred Vision. 22:33 The patient is experiencing blurred vision, to both eyes. Onset: The symptoms/episode cp began/occurred suddenly, about 2100 tonight. Duration: the symptoms single episode, improving. Associated signs and symptoms: Pertinent positives: general weakness, Pertinent negatives: fever. Patient wears glasses, wears soft contacts. Severity of symptoms: in the emergency department the symptoms have improved moderately. 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 - Social history:: Smoking status: Patient denies any tobacco usage or history of. ROS: 22:35 Constitutional: Negative for body aches, chills, fever, poor PO intake, cp 22:35 Eyes: Positive for blurry vision, Negative for discharge, pain, redness, cp 22:35 ENT: Negative for drainage from ear(s), ear pain, sore throat, difficulty swallowing, difficulty handling secretions, 22:35 Cardiovascular: Negative for chest pain, edema, palpitations, 22:35 Respiratory: Negative for cough, shortness of breath, wheezing, 22:35 Abdomen/GI: Negative for abdominal pain, nausea, vomiting, and diarrhea, 22:35 Neuro: Positive for visual changes, weakness, Negative for altered mental status, headache, numbness, syncope, 22:35 All other systems are negative, Exam: 22:40 Constitutional: The patient appears in no acute distress, alert, awake, cp non-diaphoretic, non-toxic, well developed, well nourished, 22:40 Head/Face: Normocephalic, atraumatic. cp 22:40 Eyes: Periorbital structures: appear normal, Pupils: equal, round, and reactive to light and accomodation, Extraocular movements: intact throughout, Conjunctiva: normal, no exudate, no injection, Sclera: no appreciated abnormality, Lids and lashes: appear normal, bilaterally, 22:40 ENT: External ear(s): are unremarkable, Nose: is normal, Mouth: Lips: moist, Oral mucosa: pink and intact, moist, Posterior pharynx: is normal, airway is patent, no erythema, no exudate, 22:40 Neck: ROM/movement: is normal, is supple, without pain, no range of motions limitations, 22:40 Chest/axilla: Inspection: normal, 22:40 Cardiovascular: Rate: normal, Rhythm: regular, Edema: is not appreciated, JVD: is not appreciated, 22:40 Respiratory: the patient does not display signs of respiratory distress, Respirations: normal, no use of accessory muscles, no retractions, labored breathing, is not present, Breath sounds: are clear throughout, no decreased breath sounds, no stridor, no wheezing, 22:40 Abdomen/GI: Inspection: abdomen appears normal, Palpation: abdomen is soft and non-tender, in all quadrants, 22:40 Back: pain, is absent, ROM is normal, 22:40 Neuro: Orientation: to person, place \T\ time. Mentation: is normal, Cerebellar function: is grossly normal, Motor: moves all fours, strength is normal, Sensation: is normal, 22:59 ECG was reviewed by the Attending Physician. cp Vital Signs: 22:21 Weight 68.04 kg; Height 5 ft. 4 in. ; Pain 0/10; vc1 22:25 BP 129 / 73; Pulse 60; Resp 17; Temp 98; Pulse Ox 100% ; vc1 23:42 BP 109 / 58; Pulse 73; Resp 16; Pulse Ox 97% on R/A; jb4 05/08 00:37 BP 151 / 73; Pulse 78; Resp 20; Pulse Ox 100% on R/A; jb4 02:00 BP 100 / 53; Pulse 75; Resp 16; Pulse Ox 97% on R/A; jb4 03:15 BP 111 / 60; Pulse 65; Resp 17; Pulse Ox 97% on R/A; jb4 05/07 22:21 Body Mass Index 25.75 (68.04 kg, 162.56 cm) vc1 05/07 22:21 Pain Scale: Adult vc1 NIH Stroke Scale Scores: 05/07 22:40 NIHSS Score: 0 cp Visual Acuity: 22:33 Left Eye Visual acuity 20/25, ; Right Eye Visual acuity 20/25, ; Both Eyes Visual vc1 acuity 20/20; With Lenses; MDM: 22:29 Patient medically screened. cp 23:15 Differential diagnosis: CVA, TIA, cardiac arrythmia. 05/08 01:20 Data reviewed: vital signs, nurses notes, lab test result(s), EKG, radiologic studies, cp CT scan. 01:20 Consideration of Admission/Observation Patient was admitted/placed on observation. cp Management of patient was discussed with the following: Hospitalist: Priya Taylor NP will admit after discussion. Counseling: I had a detailed discussion with the patient and/or guardian regarding the historical points, exam findings, and any diagnostic results supporting the discharge/admit diagnosis, lab results, radiology results. 05/07 22:45 Order name: Urinalysis W/Microscopic; Complete Time: 01:01 05/07 22:45 Order name: PREGU; Complete Time: 01:01 05/07 22:59 Order name: Basic Metabolic Panel; Complete Time: 01:01 [facility] 05/08 01:01 Interpretation: Normal except: NA 135; GFR 73. 05/07 22:59 Order name: Troponin High Sensitivity; Complete Time: 01:01 [facility] 05/07 22:59 Order name: Magnesium; Complete Time: 01:01 [facility] 05/07 22:59 Order name: CBC with Automated Diff; Complete Time: 01:01 [facility] 05/08 03:27 Order name: Creatine Phosphokinase [facility] 05/08 03:27 Order name: Creatine Phosphokinase [facility] 05/08 03:27 Order name: Lipid Profile [facility] 05/08 03:27 Order name: Lipid Profile [facility] 05/07 22:28 Order name: CT Head Brain wo Cont 05/07 22:28 Order name: CT Head Angio 05/07 22:28 Order name: CT Neck Angio 05/07 22:52 Order name: Chest Single View [facility] 05/08 01:36 Order name: MRI Stroke Protocol 05/08 03:27 Order name: Echo with Doppler [facility] 05/08 03:27 Order name: Stroke Protocol EDMS 05/07 22:28 Order name: EKG; Complete Time: 23:02 05/07 22:28 Order name: Cardiac monitoring; Complete Time: 22:58 05/07 22:28 Order name: EKG - Nurse/Tech; Complete Time: 22:58 05/07 22:28 Order name: IV Saline Lock; Complete Time: 22:49 05/07 22:28 Order name: Labs collected and sent; Complete Time: 22:49 05/07 22:28 Order name: O2 Per Protocol; Complete Time: 22:58 05/07 22:28 Order name: O2 Sat Monitoring; Complete Time: :58 05/07 22:33 Order name: Visual Acuity; Complete Time: :33 vc1 EC/13 22:59 Rate is 69 beats/min. Rhythm is regular. DE interval is normal. QRS interval is normal. cp QT interval is normal. T waves are Inverted in lead aVR. Interpreted by me. Reviewed by me. Administered Medications: 05/08 01:16 Drug: Aspirin PO Chewable Tablet 81 mg PO once Route: PO; lg3 01:16 Drug: foLIC Acid IVPB 1 mg IVPB once Route: IVPB; Site: right antecubital; lg3 Disposition Summary: 05/08/23 01:19 Hospitalization Ordered Notes: Hospitalization Status: Observation cp Provider: Priya Taylor cp Condition: Stable cp Problem: new cp Symptoms: are resolved cp Bed/Room Type: Standard cp Location: Telemetry/MedSurg (observation)(05/08/23 03:29) Room Assignment: [facility](05/08/23 03:29) Diagnosis - Other visual disturbances cp - Weakness cp Forms: - Medication Reconciliation Form cp - SBAR form cp - Leadership Thank You Letter cp NIH Stroke Scale - NIH Stroke Score Date: 05/07/2023 Time: 22:40 Total Score = 0 10. Dysarthria (speech clarity - read or repeat words) - 0(Normal) 11. Extinction and Inattention (visual/tactile/auditory/spatial/personal) - 0(No abnormality) 1a. Level of Consciousness (LOC) - 0(Alert) 1b. Level of Consciousness (LOC) (Month \T\ Age) - 0(Both) 1c. LOC Commands (Open \T\ Closes Eyes/Laboratory Equipment Installer) - 0(Both) 2. Best Gaze (Lateral Gaze Paresis) - 0(Normal) 3. Visual Field Loss - 0(No visual loss) 4. Facial Palsy - 0(Normal) 5a. Left Arm: Motor (10-second hold) - 0(No drift) 5b. Right Arm: Motor (10-second hold) - 0(No drift) 6a. Left Leg: Motor (5-second hold - always test supine) - 0(No drift) 6b. Right Leg: Motor (5-second hold - always test supine) - 0(No drift) 7. Limb Ataxia (finger/nose \T\ heel/gayle - test with eyes open) - 0(Absent) 8. Sensory Loss (pinprick arms/legs/face) - 0(Normal) 9. Best Language: Aphasia (description/naming/reading) - 0(No aphasia) Initials: cp Signatures: Dispatcher [employer] EDMS Eric Lal PA PA cp Garcia, Cindy, RN RN cg Indigo Cheek RN RN lg3 Awa eCnteno RN RN vc1 Corrections: (The following items were deleted from the chart) 05/07 23:04 23:02 Chest Single View+RAD.RAD.BRZ ordered. EDMS EDMS 05/08 03:23 05/07 23:02 BASIC METABOLIC PANEL+C.LAB.BRZ ordered. EDMS EDMS 05/08 03:23 05/07 23:02 CBC+H.LAB.BRZ ordered. EDMS EDMS 05/08 03:23 05/07 23:02 MAGNESIUM+C.LAB.BRZ ordered. EDMS EDMS 05/08 03:23 05/07 23:02 Troponin High Sensitivity+C.LAB.BRZ ordered. EDMS EDMS 05/08 03:29 01:19 Telemetry/MedSurg (observation) cp cg 03:29 01:19 cp cg
[2023-05-08] MEDS ORDERED: NA CHLORIDE 0.9% 1,000 ML IV SCH (04:00)
--- NOTE | 2023-05-08 04:06 | P.HP ---
Certification for Inpatient Patient admitted to: Observation With expected LOS: <2 Midnights Patient will require the following post-hospital care: None Practitioner: I am a practitioner with admitting privileges, knowledge of patient current condition, hospital course, and medical plan of care. Services: Services provided to patient in accordance with Admission requirements found in Title 42 Section 412.3 of the Code of Federal Regulations Patient History Date of Service: 05/08/23 Reason for admission: TIA History of Present Illness: Ms. Piña is a 47 yo patient with no history of migraines, no history of covid or vaccination who was reading to her Children when her vision became blurry. She states her vision was better for left eye medially and the right eye laterally. She took out her contacts and placed her glasses but her vision did not change. After 30 minutes the s/s completely resolved. She has not recently traveled, been ill, had changes to her opthalmic rx. The CT head and angio head and neck were negative in the ED. She is to be admitted for MRI in the am. GCS 15, NIH 0 on assessment Allergies Sulfa (Sulfonamide Allergy (Uncoded 12/02/15 16:57) Unknown Sulfa (Sulfonamide Antibiot Allergy (Uncoded 05/10/17 19:56) Unknown Home medications list reviewed: Yes (no regular medications) - Past Medical/Surgical History Has patient received pneumonia vaccine in the past: No Diabetic: No Past Medical History: Patient denies medical history -: Hysterectomy in 2019 Psychosocial/ Personal History: Lives at home with her Spouse and Children - Family History Family History: Reviewed- Non-Contributory - Social History Smoking Status: Never smoker Alcohol use: No CD- Drugs: No Caffeine use: Yes Place of Residence: Home Review of Systems 10-point ROS is otherwise unremarkable Neurological: As per HPI Physical Examination - Vital Signs Blood Pressure: 115/60 Pulse: 84 Respirations: 20 Pulse Ox (%): 100 - Physical Exam General: Alert, In no apparent distress, Oriented x3 HEENT: Atraumatic, Normocephalic, PERRLA Neck: Supple, 2+ carotid pulse no bruit Respiratory: Clear to auscultation bilaterally, Normal air movement Cardiovascular: No edema, Normal pulses, Regular rate/rhythm, Normal S1 S2 Capillary refill: <2 Seconds Gastrointestinal: Normal bowel sounds, Soft and benign, Non-distended Musculoskeletal: No clubbing, No swelling Integumentary: No rashes, No breakdown Neurological: Normal gait, Normal speech, Normal tone Lymphatics: No axilla or inguinal lymphadenopathy External genitalia: Deferred Rectal: Deferred - Studies Laboratory Data (last 24 hrs) 05/07/23 05/07/23 05/07/23 22:50 22:50 22:28 WBC 8.70 Cancelled Hgb 14.2 Cancelled Hct 41.7 Cancelled Plt Count 193 Cancelled Sodium 135 L Potassium 3.7 BUN 15 Creatinine 0.97 Glucose 98 Magnesium 2.4 05/07/23 22:28 WBC Hgb Hct Plt Count Sodium Cancelled Potassium Cancelled BUN Cancelled Creatinine Cancelled Glucose Cancelled Magnesium Cancelled Assessment and Plan - Advance Directives Does patient have a Living Will: No Does patient have a Durable POA for Healthcare: No
[2023-05-08 04:14] VITALS: BMI 26.2
[2023-05-08] MEDS ORDERED: ASPIRIN EC 81 MG TAB PO SCH (09:00)
[2023-05-08] MEDS ORDERED: FOLIC ACID 1 MG TABLET PO SCH (09:00)
[2023-05-08 09:33] VITALS: O2SAT 98
--- NOTE | 2023-05-08 09:53 | RAD REPORT ---
EXAM DESCRIPTION: MRI - Brain Wo Cont - 05/08/2023 9:37 am CLINICAL HISTORY: TIA COMPARISON: No comparisons TECHNIQUE: Sagittal T1-weighted images were obtained along with PD/heavily T2-weighted and T2-FLAIR images. Axial DWI and ADC mapping sequences were also obtained along with coronal heavily T2-weighted images were obtained. FINDINGS: No intracranial hemorrhage, mass or acute infarction. There is no edema or shift of midlin e structures. No extra-axial fluid collections. Signal voids are seen as a normal finding in the mary r intracranial vessels. Single focus of T2/FLAIR hyperintensity in the deep white matter of the left frontal lobe is nonspecific but can be within normal limits for patient of this age. Mastoid air cells and paranasal sinuses are clear. IMPRESSION: No acute intracranial abnormality. Specifically, no evidence of acute infarct.
[2023-05-08 11:44] VITALS: BP 110/55; TEMP 98.5
--- NOTE | 2023-05-08 12:35 | P.DS ---
Admission Date: 05/08/23 Discharge Date: 05/08/23 Disposition: ROUTINE DISCHARGE Discharge Condition: FAIR Reason for Admission: TIA - Problems (1) TIA (transient ischemic attack) Status: Acute (2) Blurry vision, bilateral Status: Acute Brief History of Present Illness: Ms. Piña is a 47 yo patient with no history of migraines, no history of covid or vaccination who was reading to her Children when her vision became blurry. She states her vision was better for left eye medially and the right eye laterally. She took out her contacts and placed her glasses but her vision did not change. After 30 minutes the s/s completely resolved. CT head and CT angio head and neck were negative in the ED. patient was hospitalized for further evaluation of TIA. Hospital Course: Patient was placed on observation on the medical floor. MRI of the brain done did not show any acute disease. Images resulted with no abnormality. Patient was asymptomatic during the hospital stay. Reviewed patient's symptoms with her and her symptoms appear not to be hemianopsia or loss of vision but blurriness. Case discussed with neurology Dr. Diaz and differential diagnosis include optic migraine versus TIA. Lipid profile within normal range. Patient discharged with aspirin and folic acid as recommended by Dr. Diaz. Vital Signs/Physical Exam: Temp Pulse Resp BP Pulse Ox 98.5 F 63 16 110/55 L 97 05/08/23 11:43 05/08/23 11:43 05/08/23 11:43 05/08/23 11:43 05/08/23 11:43 General: Alert, In no apparent distress, Oriented x3 HEENT: Mucous membr. moist/pink, EOMI, Sclerae nonicteric Neck: Supple, JVD not distended Respiratory: Clear to auscultation bilaterally, Normal air movement Cardiovascular: No edema, Regular rate/rhythm, Normal S1 S2 Gastrointestinal: Normal bowel sounds, Soft and benign, Non-distended, No tenderness Musculoskeletal: No swelling, No tenderness Integumentary: No rashes, No cyanosis Neurological: Normal speech, Normal strength at 5/5 x4 extr, Cranial nerves 3-12 intact Laboratory Data at Discharge: WBC 8.70 thou/uL (4.3-10.9) 05/07/23 22:50 Hgb 14.2 g/dL (12.0-15.0) 05/07/23 22:50 Hct 41.7 % (36.0-45.0) 05/07/23 22:50 Plt Count 193 thou/uL (152-406) 05/07/23 22:50 Sodium 135 mEq/L (136-145) L 05/07/23 22:50 Potassium 3.7 mEq/L (3.5-5.1) 05/07/23 22:50 BUN 15 mg/dL (7-18) 05/07/23 22:50 Creatinine 0.97 mg/dL (0.55-1.02) 05/07/23 22:50 Glucose 98 mg/dL (74-106) 05/07/23 22:50 Magnesium 2.4 mg/dL (1.6-2.4) 05/07/23 22:50 Triglycerides 38 mg/dL (<150) 05/08/23 06:48 Cholesterol 117 mg/dL (<200) 05/08/23 06:48 HDL Cholesterol 45 mg/dL (40-60) 05/08/23 06:48 Cholesterol/HDL Ratio 2.60 05/08/23 06:48 Home Medications: Aspirin [Aspirin EC 81 MG] 81 mg PO DAILY #30 tab 05/08/23 Folic Acid 1 mg PO DAILY #30 tab 05/08/23 New Medications: Aspirin [Aspirin EC 81 MG] 81 mg PO DAILY #30 tab Folic Acid 1 mg PO DAILY #30 tab Physician Discharge Instructions: You will need to see an Ripper Operator to examine your eyes. Diet: AHA Activity: Ad charley Followup: Nas Diaz MD [ASSOCIATE-ACTIVE - CAN ADMIT] - (within 1 month) Ansley Lima FNP [Primary Care Provider] - Time spent managing pt's care (in minutes): 28
--- NOTE | 2023-05-08 14:21 | RAD REPORT ---
EXAM DESCRIPTION: CT - Head Brain Wo Cont - 05/08/2023 2:02 am CLINICAL HISTORY: Visual disturbances; Weakness TECHNIQUE: Axial computed tomography images of the head/brain without intravenous contrast. Sagitt al and coronal reformatted images were created and reviewed. This CT exam was performed using one o r more of the following dose reduction techniques: automated exposure control, adjustment of the mA and/or kV according to patient size, and/or use of iterative reconstruction technique. COMPARISON: No relevant prior studies available. FINDINGS: Brain: Unremarkable. No hemorrhage. No significant white matter disease. No edema. Ventricles: Unremarkable. No ventriculomegaly. Bones/joints: Unremarkable. No acute fracture. Soft tissues: Unremarkable. Sinuses: Unremarkable as visualized. No acute sinusitis. Mastoid air cells: Unremarkable as visualized. No mastoid effusion. IMPRESSION: No acute hemorrhage, focal mass or large territory infarction. Electronically signed by: Muriel Ponce MD 05/08/2023 12:12 AM COMMODITIES REQUIREMENTS ANALYST Due to temporary technical issues with the PACS/Fluency reporting system, reports are being signed by the in house radiologist without review as a courtesy to ensure prompt reporting. The interpreting r adiologist is fully responsible for the content of the report.
--- NOTE | 2023-05-08 14:23 | RAD REPORT ---
EXAM DESCRIPTION: CT - Head angio - 05/08/2023 2:02 am CLINICAL HISTORY: Visual disturbances, Weakness COMPARISON: CT Head/Brain Without Contrast 05/07/2023 at 11:44 PM TECHNIQUE: Head CTA axial images acquired with IV contrast. Coronal and sagittal CTA MIPs and MPRs c reated. 3D volume rendered images created. Exam performed according to departmental dose-optimization program which includes automated exposure control, adjustment of mA and/or kV according to patient s ize, and/or use of iterative reconstruction technique. FINDINGS: CTA Head- Intracranial right vertebral artery is markedly smaller diameter compared to left (normal variant). Both intracranial vertebral, basilar, and both posterior cerebral arteries patent. Both intracranial internal carotid, both middle cerebral, anterior communicating, and both anterior c erebral arteries unremarkable. No evidence of large intracranial arterial occlusion, aneurysm, or AVM. IMPRESSION: Unremarkable CTA Head with Contrast. If there remains strong clinical suspicion of acute ischemic infarct, then MR brain/head recommended (if there are no contraindications). Electronically signed by: Mello kSy MD 05/08/2023 12:19 AM WIND POWER PROJECT MANAGER Due to temporary technical issues with the PACS/Fluency reporting system, reports are being signed by the in house radiologist without review as a courtesy to ensure prompt reporting. The interpreting r adiologist is fully responsible for the content of the report.
--- NOTE | 2023-05-08 14:25 | RAD REPORT ---
EXAM DESCRIPTION: CT - Neck Angio - 05/08/2023 2:02 am CLINICAL HISTORY: Weakness, blurred vision COMPARISON: None. TECHNIQUE: Neck CTA axial images acquired with IV contrast. Coronal and sagittal CTA MIPs and MPRs c reated. 3D volume rendered images created. Exam performed according to departmental dose-optimization program which includes automated exposure control, adjustment of mA and/or kV according to patient s ize, and/or use of iterative reconstruction technique. FINDINGS: Aortic arch unremarkable. Both vertebral arteries patent. Right vertebral artery is moderately smaller diameter compared to lef t (normal variant). Both carotid arteries unremarkable. No significant carotid artery stenosis (by NASCET criteria). Moderate C5/C6 degenerative disc disease. IMPRESSION: Unremarkable CTA Neck with Contrast. Electronically signed by: Mello Sky MD 05/08/2023 12:37 AM BUSINESS SYSTEM MANAGER Due to temporary technical issues with the PACS/Fluency reporting system, reports are being signed by the in house radiologist without review as a courtesy to ensure prompt reporting. The interpreting r adiologist is fully responsible for the content of the report.
--- NOTE | 2023-05-08 14:26 | RAD REPORT ---
EXAM DESCRIPTION: RAD - Chest Single View - 05/07/2023 10:55 pm CLINICAL HISTORY: GENERAL WEAKNESS COMPARISON: None TECHNIQUE: Single AP view of the chest. FINDINGS: Lung volumes adequate. Cardiac silhouette is normal in size. No pneumothorax. No large pleural effusion. No focal consolidation. No acute bony finding. IMPRESSION: No evidence of acute cardiopulmonary disease. Electronically signed by: Kami Kraft MD 05/07/2023 11:08 PM VIRTUAL REALITY SPECIALIST Due to temporary technical issues with the PACS/Fluency reporting system, reports are being signed by the in house radiologist without review as a courtesy to ensure prompt reporting. The interpreting r adiologist is fully responsible for the content of the report.
--- NOTE | 2023-05-09 17:26 | EKG ---
Test Date: 2023-05-07 Test Time: 22:56:29 In Store Marketing Associate: FREIDA MEASUREMENT RESULTS: Intervals: Rate: 69 [place]: 176 QRSD: 98 QT: 386 QTc: 413 [place]: P: 74 [place]: 176 QRS: 84 T: 66 INTERPRETIVE STATEMENTS: Normal sinus rhythm Normal ECG No previous ECG available for comparison Electronically Signed On 05-09-23 17:21:41 ROUTE SALES DRIVER by Brendon Pierce
== END 2023-05-08 13:43 | disposition home or self-care (01) ==
LOC: ER 22:04 → 2ND 05-08 03:19
PROVIDERS: ADMIT Internal Medicine; ATTEND Internal Medicine
DX: H53.8 Other visual disturbances (principal); R53.1 Weakness; G43.909 Migraine, unspecified, not intractable, without status migrainosus; J44.9 Chronic obstructive pulmonary disease, unspecified; Z88.2 Allergy status to sulfonamides
CPT/HCPCS: 93005; 85025; 81001; 80048; 36415; 83735; 82550; 81025; 80061; 84484; 70450; 70496; 70498; 71045; 70551; 94760 ×2; Q9967; G0378